=== PATIENT | male | born 1965 | race Caucasian/White ===

== ENCOUNTER 2017-08-07 12:24 | Emergency (ER) | payer BC ==
[~2017-08-07] VITALS: Ht 165.1 cm; Wt 104.6 kg
[2017-08-07 12:28] VITALS: Ht 165.1 cm; Wt 104.6 kg
[2017-08-07] MEDS ORDERED: PANTOPRAZOLE 40 MG INJ IV STA (17:49)
[2017-08-07 18:10] LABS: BASOPHILS % 0.4 % (0.0-2.0); EOSINOPHILS # 0.1 10^3/ul (0.0-0.5); EOSINOPHILS % 1.5 % (0.0-7.0); HEMATOCRIT 24.3 % (42.0-52.0); LYMPHOCYTES # 1.2 10^3/ul (0.8-2.9); LYMPHOCYTES % 21.7 % (15.0-51.0); MEAN CORPUSCULAR HGB CONC 32.9 g/dl (32.0-37.0); MEAN PLATELET VOLUME 11.1 fl (7.4-10.4); MONOCYTE # 0.3 10^3/ul (0.3-0.9); MONOCYTES % 6.2 % (0.0-11.0); NEUTROPHIL # 3.7 10^3/ul (1.6-7.5); PLATELET COUNT 202 10^3/UL (140-415); RED BLOOD COUNT 2.67 10^6/ul (4.70-6.10); RED CELL DISTRIBUTION WIDTH 13.2 % (11.5-14.5); WHITE BLOOD COUNT 5.3 10^3/ul (4.8-10.8)
[2017-08-07] MEDS ORDERED: FER325 PO (18:11)
[2017-08-07] MEDS ORDERED: LOSA50TA6 PO (18:12)
[2017-08-07] MEDS ORDERED: AMLO5TAB4 PO (18:12)
[2017-08-07] MEDS ORDERED: FURO40TA4 PO (18:12)
[2017-08-07] MEDS ORDERED: ATOR20TA38 PO (18:13)
[2017-08-07 18:29] LABS: ALANINE AMINOTRANSFERASE 41 IU/L (13-69); ALBUMIN 2.3 g/dl (3.3-4.9); ALBUMIN/GLOBULIN RATIO 0.85; ALKALINE PHOSPHATASE 57 IU/L (42-121); ANION GAP 7 (8-16); ASPARTATE AMINO TRANSFERASE 30 IU/L (15-46); BILIRUBIN,INDIRECT 0.1 mg/dl (0-1.1); BILIRUBIN,TOTAL 0.1 mg/dl (0.2-1.3); BLOOD UREA NITROGEN 18 mg/dl (7-20); CALCIUM 8.6 mg/dl (8.4-10.2); CARBON DIOXIDE 28 mmol/L (21-31); CHLORIDE 110 mmol/L (97-110); GLUCOSE 116 mg/dl (70-220); POTASSIUM 4.8 mmol/L (3.5-5.1); SODIUM 140 mmol/L (135-144)
[2017-08-07 18:40] LABS: TROPONIN-I < 0.012 ng/ml (0.00-0.12)
[2017-08-07] MEDS ORDERED: SOD CHLORIDE 0.9% 250 ML IV ONE (18:41)
[2017-08-07 18:45] LABS: PARTIAL THROMBOPLASTIN TIME 29.9 Sec (25.0-35.0)
--- NOTE | 2017-08-07 19:09 | ERD ---
ER Documentation Chief Complaint Chief Complaint send from clinic due low hgb, for blood transfusion, asymptomatic HPI Patient is a 52-year-old male with chronic kidney disease and hypertension who presents with low hemoglobin. The patient was sent by Dr. Noe as his hemoglobin has been dropping. He wanted a blood transfusion for the patient. The patient is a history of hemorrhoids. The patient did have some hemorrhoidal bleeding today. He does not feel weak. He has no pain. He had a colonoscopy 4 years ago which he said was "normal". Upon review of old medical records the patient one previous visit to the ER in 2007. ROS All systems reviewed and are negative except as per history of present illness. Medications Home Meds Reported Medications Atorvastatin Calcium* (Atorvastatin Calcium*) 20 Mg Tablet, 20 MG PO QHS, #30 TAB 08/07/17 Losartan Potassium* (Losartan Potassium*) 50 Mg Tablet, 50 MG PO DAILY, TAB 08/07/17 Amlodipine Besylate* (Norvasc*) 5 Mg Tablet, 5 MG PO DAILY, TAB 08/07/17 Furosemide* (Furosemide*) 40 Mg Tablet, 40 MG PO DAILY, TAB 08/07/17 Ferrous Sulfate* (Ferrous Sulfate*) 325 Mg Tabec, 325 MG PO BID, TAB 08/07/17 Allergies Allergies: Coded Allergies: No Known Allergy (Unverified , 08/07/17) PMhx/Soc Positive for hypertension and chronic kidney disease FmHx Family History: No diabetes Physical Exam Vitals Vital Signs Date Time Temp Pulse Resp B/P Pulse Ox O2 Delivery O2 Flow Rate FiO2 08/07/17 12:28 98.1 73 18 171/98 99 Physical Exam Const: No acute distress Head: Atraumatic Eyes: Normal Conjunctiva ENT: Normal External Ears, Nose and Mouth. Neck: Full range of motion..~ No meningismus. Resp: Clear to auscultation bilaterally Cardio: Regular rate and rhythm, no murmurs Abd: Soft, non tender, non distended. Normal bowel sounds Skin: No petechiae or rashes Back: No midline or flank tenderness Ext: No cyanosis, or edema Neur: Awake and alert Psych: Normal Mood and Affect Result Diagram: 08/07/17 1800 08/07/17 1800 Results 24 hrs Laboratory Tests Test 08/07/17 18:00 White Blood Count 5.310^3/ul Red Blood Count 2.6710^6/ul Hemoglobin 8.0g/dl Hematocrit 24.3% Mean Corpuscular Volume 91.0fl Mean Corpuscular Hemoglobin 30.0pg Mean Corpuscular Hemoglobin Concent 32.9g/dl Red Cell Distribution Width 13.2% Platelet Count 80468^3/UL Mean Platelet Volume 11.1fl Neutrophils % 70.0% Lymphocytes % 21.7% Monocytes % 6.2% Eosinophils % 1.5% Basophils % 0.4% Nucleated Red Blood Cells % 0.0/100WBC Neutrophils # 3.710^3/ul Lymphocytes # 1.210^3/ul Monocytes # 0.310^3/ul Eosinophils # 0.110^3/ul Basophils # 0.010^3/ul Nucleated Red Blood Cells # 0.010^3/ul Prothrombin Time 12.0Sec Prothrombin Time Ratio 1.0 INR International Normalized Ratio 0.88 Activated Partial Thromboplast Time 29.9Sec Sodium Level 140mmol/L Potassium Level 4.8mmol/L Chloride Level 110mmol/L Carbon Dioxide Level 28mmol/L Anion Gap 7 Blood Urea Nitrogen 18mg/dl Creatinine 1.70mg/dl Glucose Level 116mg/dl Calcium Level 8.6mg/dl Total Bilirubin 0.1mg/dl Direct Bilirubin 0.00mg/dl Indirect Bilirubin 0.1mg/dl Aspartate Amino Transf (AST/SGOT) 30IU/L Alanine Aminotransferase (ALT/SGPT) 41IU/L Alkaline Phosphatase 57IU/L Troponin I < 0.012ng/ml Total Protein 5.0g/dl Albumin 2.3g/dl Globulin 2.70g/dl Albumin/Globulin Ratio 0.85 Current Medications Medications (Trade) Dose Ordered Sig/Ernie Route PRN Reason Start Time Stop Time Status Last Admin Dose Admin Pantoprazole 40 mg 40 mg ONCE STAT IV 08/07/17 17:49 08/07/17 17:50 DC 08/07/17 19:00 Sodium Chloride (NS) 250 ml @ 0 mls/hr Q0M ONCE IV 08/07/17 18:41 08/07/17 18:43 DC 08/07/17 19:07 Procedures/MDM EKG read by me: Rate/Rhythm: Regular rate and rhythm at a rate of 65 Intervals: Normal Impression: No evidence of ischemia or arrhythmia Patient is a 52-year-old male who presents with anemia. The patient is a hemoglobin of 8.0. He has no real symptoms with Dr. Kusum would like him to get 1 unit of packed red blood cells. I will order this and the patient will be discharged home. He can return for any worsening symptoms. He should follow -up within 24-48 hours. Critical Care: Time: 35 minutes excluding all billable procedures. Treatments/Evaluations: Close monitoring and treatment of unstable vital signs, cardiorespiratory, and neurologic status, while maintaining tight balance of fluid, respiratory, and cardiac interventions. Departure Diagnosis: Primary Impression: Anemia Anemia type: unspecified type Qualified Code: D64.9 - Anemia, unspecified type Condition: SUZE Chin MD Aug 07, 2017 19:09
[2017-08-07 19:29] LABS: INR 0.88
[2017-08-07 22:55] VITALS: BP 155/79; PULSE 70; RESP 15; TEMP 98.4
== END 2017-08-07 23:13 | disposition home or self-care (01) ==
LOC: E/R 12:24
DX: D64.9 Anemia, unspecified (principal); I12.9 Hypertensive chronic kidney disease with stage 1 through stage 4 chronic kidney disease, or unspecified chronic kidney disease; N18.9 Chronic kidney disease, unspecified
CPT/HCPCS: 36415; 36430; 80053; 84484; 85025; 85610; 85730; 86850; 86900; 86901; 86920; 93005; 96374; 99291; C9113; J7040; P9016

== ENCOUNTER 2018-01-02 11:21 | Day surgery (SDC) | END 2018-01-02 16:48 | disposition home or self-care (01) ==

== ENCOUNTER 2018-03-31 06:05 | Day surgery (SDC) | END 2018-03-31 12:00 | disposition home or self-care (01) ==

== ENCOUNTER 2018-04-03 08:33 | Inpatient (IN) | END 2018-04-17 18:33 | disposition home or self-care (01) | DRG 326 ==

== ENCOUNTER 2019-04-29 17:59 | Emergency (ER) | payer BC ==
[~2019-04-29] VITALS: Ht 167.6 cm; Wt 83.6 kg
[~2019-04-29 17:59] MED LIST: ATOR40TA68 PO; CAPE500T17 PO; CITA10TA5 PO; FER325 PO; HYDR100T25 PO; HYDR26CR PR; LOSA100T15 PO; LOSA50TA14 PO; METO10TA3 PO; METO5TAB65 PO; OMEP20CA16 PO; POTA-57 PO; RANI300T PO
[2019-04-29 18:10] VITALS: Ht 167.6 cm; Wt 83.6 kg
[2019-04-29] MEDS ORDERED: SOD CHLORIDE 0.9% 0 ML IV ONE (19:15)
[2019-04-30 02:43] VITALS: BP 156/76; PULSE 47; RESP 14
== END 2019-04-30 02:45 | disposition home or self-care (01) ==
LOC: E/R 17:59
DX: D61.818 Other pancytopenia (principal); D59.1 Other autoimmune hemolytic anemias; N18.9 Chronic kidney disease, unspecified; C16.9 Malignant neoplasm of stomach, unspecified
CPT/HCPCS: 36415; 36430; 80048; 85025; 85610; 85730; 86644; 86850; 86900; 86901; 86920; 86945; J7040; P9016; Z7502

== ENCOUNTER 2019-06-20 08:08 | Inpatient (IN) | payer BC ==
[~2019-06-20] VITALS: Ht 170.2 cm; Wt 89.3 kg
[~2019-06-20 08:08] MED LIST changes: +AMLO-145 PO; -FER325 PO; -HYDR100T25 PO; -HYDR26CR PR; -LOSA50TA14 PO; -OMEP20CA16 PO; +PANT40TA4 PO; +POLY17PO6 PO; -POTA-57 PO
[2019-06-20] MEDS ORDERED: SOD CHLORIDE 0.9% 0 ML IV ONE (09:40)
[2019-06-20] MEDS ORDERED: ONDANSETRON 4 MG INJ IV PRN ×2 (11:00→12:00)
[2019-06-20] MEDS ORDERED: ACETAMINOPHEN 325 MG TAB PO PRN ×2 (11:00→12:00)
[2019-06-20] MEDS ORDERED: HYDROCODONE/APAP (5/325) TAB PO PRN (12:00)
[2019-06-20] MEDS ORDERED: SOD CHLORIDE 0.9% 1,000 ML IV SCH (12:00)
[2019-06-20] MEDS ORDERED: NACL 0.9% 3 ML SYG IV SCH (12:00)
[2019-06-20] MEDS ORDERED: SOD CHLORIDE 0.9% 250 ML IV* ONE (12:08)
[2019-06-20] MEDS ORDERED: hydrALAzine 20 MG INJ IV PRN (12:30)
[2019-06-20] MEDS ORDERED: SOD CHLORIDE 0.9% 1,000 ML IV ONE (16:00)
[2019-06-20] MEDS ORDERED: PANTOPRAZOLE IV 80 MG in SOD CHLORIDE 0.9% 100 ML IVPB ONE (16:30)
[2019-06-20] MEDS: PANTOPRAZOLE IV 80 MG in SOD CHLORIDE 0.9% 100 ML IV SCH ×2 (18:54→19:12)
[2019-06-20] MEDS: AMLODIPINE 5 MG TAB PO SCH (20:56)
[2019-06-20] MEDS: ATORVASTATIN 40 MG TAB PO SCH (20:56)
[2019-06-20 22:00] VITALS: BP 152/87; PULSE 55; RESP 21
[2019-06-20 22:15] VITALS: BP 148/89; PULSE 54; RESP 15
[2019-06-20 22:18] VITALS: Ht 170.2 cm; Wt 89.3 kg
[2019-06-20 22:30] VITALS: BP 141/86; PULSE 53; RESP 18
[2019-06-20 22:45] VITALS: BP 132/88; PULSE 55; RESP 17
[2019-06-20 23:00] VITALS: BP 146/86; PULSE 54; RESP 17
[2019-06-20 23:30] VITALS: BP 125/110; PULSE 50; RESP 13
[2019-06-21] VITALS (27 sets, daily range): BP systolic 107–158; BP diastolic 71–109; PULSE 48–95; RESP 12–26
[2019-06-21] MEDS: PANTOPRAZOLE IV 80 MG in SOD CHLORIDE 0.9% 100 ML IV SCH ×2 (04:41→15:24)
[2019-06-21] MEDS: SOD CHLORIDE 0.9% 1,000 ML IV SCH ×2 (04:42→07:43)
[2019-06-21] MEDS: CAPECITABINE 500 MG TAB PO SCH (08:21)
[2019-06-21] MEDS: CITALOPRAM 20 MG TAB PO SCH (08:21)
[2019-06-21] MEDS: AMLODIPINE 5 MG TAB PO SCH ×2 (08:21→20:12)
[2019-06-21] MEDS ORDERED: BISACODYL (EC) 5 MG TAB PO ONE ×2 (11:34→16:00)
[2019-06-21] MEDS ORDERED: MAGNESIUM CITRATE 300 ML BTL PO ONE (12:00)
[2019-06-21] MEDS ORDERED: POLYETHYLENE GLYCOL 3350 119 GM POWDER PO ONE ×2 (13:00→15:00)
[2019-06-21] MEDS: ATORVASTATIN 40 MG TAB PO SCH (20:11)
[2019-06-22] VITALS (25 sets, daily range): BP systolic 128–156; BP diastolic 84–102; PULSE 60–103; RESP 12–22
[2019-06-22] MEDS: PANTOPRAZOLE IV 80 MG in SOD CHLORIDE 0.9% 100 ML IV SCH ×2 (04:37→14:47)
[2019-06-22] MEDS: CITALOPRAM 20 MG TAB PO SCH (09:00)
[2019-06-22] MEDS: CAPECITABINE 500 MG TAB PO SCH (09:00)
[2019-06-22] MEDS: AMLODIPINE 5 MG TAB PO SCH ×2 (09:00→21:02)
[2019-06-22] MEDS ORDERED: LIDOCAINE 1% (MPF) 5 ML VIAL ONE (13:59)
[2019-06-22] MEDS ORDERED: FENTAnyl 50 MCG/ML VIAL ONE (16:39)
[2019-06-22] MEDS ORDERED: LIDOCAINE 100 MG SYRINGE ONE (16:39)
[2019-06-22] MEDS ORDERED: PROPOFOL 20 ML ONE (16:39)
[2019-06-22] MEDS: ATORVASTATIN 40 MG TAB PO SCH (21:02)
[2019-06-23 00:56] VITALS: BP 142/85; PULSE 77; RESP 18
[2019-06-23 04:00] VITALS: BP 137/86; PULSE 75; RESP 18
[2019-06-23] MEDS: PANTOPRAZOLE (EC) 40 MG TAB PO SCH ×2 (05:28→17:21)
[2019-06-23 07:24] VITALS: BP 114/67; PULSE 67; RESP 20
[2019-06-23] MEDS: AMLODIPINE 5 MG TAB PO SCH ×2 (08:59→20:45)
[2019-06-23] MEDS: CITALOPRAM 20 MG TAB PO SCH (08:59)
[2019-06-23 11:15] VITALS: BP 154/94; PULSE 71; RESP 20
[2019-06-23] MEDS: CAPECITABINE 500 MG TAB PO SCH (13:27)
[2019-06-23 15:40] VITALS: BP 131/89; PULSE 77; RESP 20
[2019-06-23 19:50] VITALS: BP 148/91; PULSE 81; RESP 18
[2019-06-23] MEDS: ATORVASTATIN 40 MG TAB PO SCH (20:44)
[2019-06-24 00:33] VITALS: BP 140/82; PULSE 82; RESP 18
[2019-06-24 03:39] VITALS: BP 134/83; PULSE 86; RESP 18
[2019-06-24] MEDS: PANTOPRAZOLE (EC) 40 MG TAB PO SCH (06:15)
[2019-06-24 07:17] VITALS: BP 128/74; PULSE 93; RESP 20
[2019-06-24] MEDS ORDERED: LIDOCAINE 1% (MPF) 5 ML VIAL ONE (08:58)
[2019-06-24] MEDS: CITALOPRAM 20 MG TAB PO SCH (09:36)
[2019-06-24] MEDS: CAPECITABINE 500 MG TAB PO SCH (09:36)
[2019-06-24] MEDS: AMLODIPINE 5 MG TAB PO SCH (09:39)
[2019-06-24 11:08] VITALS: BP 150/87; PULSE 78; RESP 18
== END 2019-06-24 14:50 | disposition home or self-care (01) | DRG 378 ==
LOC: E/R 08:08 → ICU 11:29 → EDBEDREQSVC 16:09 → EDBEDREQ 16:09 → 6WM 06-23 00:42
PROVIDERS: ADMIT Internal Medicine; ATTEND Internal Medicine
PROC: 30233N1 Transfusion of Nonautologous Red Blood Cells into Peripheral Vein, Percutaneous Approach (ICD-10-PCS; 2019-06-20)
PROC: 30233K1 Transfusion of Nonautologous Frozen Plasma into Peripheral Vein, Percutaneous Approach (ICD-10-PCS; 2019-06-20)
PROC: 0W9G3ZX Drainage of Peritoneal Cavity, Percutaneous Approach, Diagnostic (ICD-10-PCS; 2019-06-22)
PROC: 0DJD8ZZ Inspection of Lower Intestinal Tract, Via Natural or Artificial Opening Endoscopic (ICD-10-PCS; principal; 2019-06-22 16:30)
PROC: 0DB68ZX Excision of Stomach, Via Natural or Artificial Opening Endoscopic, Diagnostic (ICD-10-PCS; 2019-06-22 16:30)
PROC: 0W9G3ZZ Drainage of Peritoneal Cavity, Percutaneous Approach (ICD-10-PCS; 2019-06-24)
DX: K92.2 Gastrointestinal hemorrhage, unspecified (principal); N17.9 Acute kidney failure, unspecified; D62 Acute posthemorrhagic anemia; C16.9 Malignant neoplasm of stomach, unspecified; E87.1 Hypo-osmolality and hyponatremia; D69.6 Thrombocytopenia, unspecified; I12.9 Hypertensive chronic kidney disease with stage 1 through stage 4 chronic kidney disease, or unspecified chronic kidney disease; K21.9 Gastro-esophageal reflux disease without esophagitis; E78.5 Hyperlipidemia, unspecified; N18.3 Chronic kidney disease, stage 3 (moderate); K64.8 Other hemorrhoids; Z90.3 Acquired absence of stomach [part of]
CPT/HCPCS: 36415; 36430; 71045; 74176; 76705; 80053; 81001; 82042; 82150; 82550; 82728; 82945; 83036; 83540; 83615; 83735; 83986; 84157; 84560; 85014; 85018; 85025; 85049; 85610; 85670; 85730; 86850; 86900; 86901; 86920; 87070; 87081; 87102; 87116; 88104; 88305; 88312; 89051; 93005; 93306; 93970; C9113; J2001; J2405; J3010; J7030; J7040; P9016; P9059